=== PATIENT | male | born 1965 | race Caucasian/White ===

== ENCOUNTER 2016-10-10 09:50 | Emergency (ER) | payer BC ==
[~2016-10-10] VITALS: Ht 167.6 cm; Wt 83.0 kg
[~2016-10-10 09:50] MED LIST: ADV25050 IH; ALPR0.5T PO; ASPI-664 PO; ATOR20TA38 PO; CLOP75TA27 PO; HYDR-3011 PO; LISI-523 PO; METO-448 PO
[2016-10-10 09:53] VITALS: Ht 167.6 cm; Wt 83.0 kg
[2016-10-10] MEDS ORDERED: SOD CHLORIDE 0.9% 1,000 ML IV STA (10:18)
[2016-10-10] MEDS ORDERED: ONDANSETRON 4 MG INJ IV STA (10:18)
[2016-10-10] MEDS ORDERED: ACETAMINOPHEN 500 MG TAB PO STA (10:18)
--- NOTE | 2016-10-10 10:26 | ERD ---
ER Documentation Chief Complaint Date/Time DATE: 10/10/16 TIME: 10:24 Chief Complaint vomiting x today "drank too much last night" HPI This is a 50-year-old male history of coronary disease status post stent who presents with multiple complaints. The patient verbalizes that he drinks significant amount yesterday evening at a alliance party. The patient now today has multiple episodes of nonbloody nonbilious emesis with mild headache that is dull , gradual, frontal. He denies any chest pain or shortness of breath, no pleuritic pain. The patient's blood pressure is also noted be slightly elevated but he denies any chest pain or shortness of breath and states noncompliance with medication regimen. ROS All systems reviewed and are negative except as per history of present illness. Medications Home Meds Active Scripts Ondansetron (Ondansetron Odt) 4 Mg Tab.rapdis, 4 MG PO Q6H Y for NAUSEA AND/OR VOMITING, #30 TAB Prov:JAIME COLLINS MD 10/10/16 Alprazolam* (Xanax*) 0.5 Mg Tab, 0.5 MG PO TID, #20 TAB Prov:EVAN ARELLANO MD 02/14/15 Aspirin* (Aspirin* EC) 81 Mg Tablet.dr, 81 MG PO DAILY for 30 Days, TAB Prov:EVAN ARELLANO MD 02/14/15 Metoprolol Tartrate* (Lopressor*) 25 Mg Tab, 12.5 MG PO BID for 30 Days, TAB Prov:EVAN ARELLANO MD 02/14/15 Lisinopril* (Zestril*) 5 Mg Tab, 5 MG PO DAILY for 30 Days Prov:EVAN ARELLANO MD 02/14/15 Clopidogrel Bisulfate (Clopidogrel) 75 Mg Tab, 75 MG PO DAILY, #30 Prov:EVAN ARELLANO MD 02/14/15 Atorvastatin Calcium* (Atorvastatin Calcium*) 20 Mg Tab, 40 MG PO HS, #30 Prov:EVAN ARELLANO MD 02/14/15 Reported Medications Hydroxyzine Hcl* (Hydroxyzine Hcl*) 25 Mg Tablet, 25 MG PO DAILY 02/04/13 Discontinued Reported Medications Salmeterol Xinaf/Fluticasone* (Advair 250/50 Diskus*) 1 Inh Inha, 1 INH IH Y 02/04/13 Allergies Allergies: Coded Allergies: No Known Drug Allergies (Verified Allergy, Mild, 10/10/16) PMhx/Soc History of Surgery: Yes (hernia repair 1989) Anesthesia Reaction: No Hx Neurological Disorder: No Hx Respiratory Disorders: Yes (asthma) Hx Cardiac Disorders: Yes (MA, hypertension) Hx Psychiatric Problems: No Hx Miscellaneous Medical Probl: No Hx Alcohol Use: Yes Hx Substance Use: No Hx Tobacco Use: Yes Smoking Status: Current every day smoker FmHx Family History: coronary disease, No diabetes Physical Exam Vitals Vital Signs Date Time Temp Pulse Resp B/P Pulse Ox O2 Delivery O2 Flow Rate FiO2 10/10/16 09:53 97.5 89 18 177/113 91 Physical Exam General: Well developed, well nourished, no acute distress Head: Normocephalic, atraumatic. Eyes: Pupils equally reactive, EOM intact ENT: Moist mucous membranes Neck: Supple, no lymphadenopathy Respiratory: Lungs clear bilaterally, no distress Cardiovascular: RRR, no murmurs, rubs, or gallops Abdominal: Soft, non-tender, non-distended, no peritoneal signs, no tenderness to McBurney's point, negative Erazo sign : Deferred MSK: No edema, no unilateral swelling, 5/5 strength Neurologic: Alert and oriented, moving all extremities, normal speech, no focal weakness, no cerebellar signs Skin: No rash Psych: Normal mood Results 24 hrs Current Medications Medications (Trade) Dose Ordered Sig/Sabrina Route PRN Reason Start Time Stop Time Status Last Admin Dose Admin Sodium Chloride (NS) 1,000 ml @ 1,000 mls/hr Q1H STAT IV 10/10/16 10:18 10/10/16 11:17 DC 10/10/16 10:34 Ondansetron HCl (Zofran Inj) 4 mg ONCE STAT IV 10/10/16 10:18 10/10/16 10:20 DC 10/10/16 10:34 Acetaminophen (Tylenol Tab) 1,000 mg ONCE STAT PO 10/10/16 10:18 10/10/16 10:20 DC 10/10/16 10:34 Ketorolac Tromethamine (Toradol) 15 mg ONCE STAT IV 10/10/16 11:16 10/10/16 11:17 DC Procedures/MDM EKG, MONITORS, & DIAGNOSTIC IMAGING: EKG: I reviewed and interpreted a 12-lead EKG. Rhythm: Normal sinus rhythm Ectopy: None Intervals: No abnormalities ST segments: No elevations or depressions T waves: No contiguous inversions CT brain: No acute process MEDICAL DECISION MAKING: Patient's blood pressure was elevated (>120/80) but appears stable without evidence of hypertensive emergency or urgency. The patient was counseled about the risks of hypertension and urged to pursue outpatient monitoring and therapy within a week with their primary care physician. The patient has noncompliance with his medication regimen therefore his blood pressure is likely secondary to this process. The patient does have a headache and nausea and vomiting. This is not consistent with meningitis. The patient' s headache is unlikely related to serious etiology. The patient does not exhibit any clinical signs or symptoms, and has no risk factors to suggest headache etiology such as subarachnoid hemorrhage, acute vertebral or carotid dissection, intracranial mass, epidural, subdural hematoma, dural venous sinus thrombosis, giant cell arteritis, or pseudotumor cerebri. However, given the patient is on Plavix and has a headache with vomiting and elevated blood pressure and believe a CT of the brain would be appropriate to rule out hemorrhage. However, very low clinical concern for this process. Low concern for cardiac etiology. No chest pain, no anginal equivalent. Screening EKG appropriate. This is all very consistent with likely hangover, veisalgia. I believe he would benefit from hydration, nausea control. ER COURSE: The patient had improved symptoms with IV fluids, Toradol, Tylenol. The patient CT is negative, EKG is nonischemic. The patient is improving and is safe for discharge. I kept the patient and/or family informed of laboratory and diagnostic imaging results throughout the emergency room course. DISPOSITION PLAN: We discussed follow up with the patient's primary care doctor within 24 to 48 hours as needed. We also discussed return to the emergency room for worsening symptoms or worsening condition. Outpatient referral: [None required] Discharge Medications: Zofran Departure Diagnosis: Primary Impression: Hangover Complication of substance-induced condition: uncomplicated Qualified Code: F10.120 - Hangover, uncomplicated Additional Impression: Nausea and vomiting Vomiting type: unspecified Vomiting Intractability: non-intractable Qualified Code: R11.2 - Non-intractable vomiting with nausea, unspecified vomiting type Condition: Stable JAIME COLLINS MD Oct 10, 2016 10:26
[2016-10-10] MEDS ORDERED: ONDA4TAB14 PO (10:55)
--- NOTE | 2016-10-10 11:02 | RADRPT ---
PROCEDURE: CT Brain without. CLINICAL INDICATION: Headaches for 1 day with vomiting TECHNIQUE: A CT of the brain was performed utilizing axial sections from the skull base through th e vertex without contrast. The scan was reviewed in soft tissue brain and high frequency resolution bone algorithm windows. Images were reviewed on a high-resolution PACS workstation. The exam DLP = 720 mGy-cm. One or more of the following dose reduction techniques were used: Automated exposure control Adjustment of the mA and/or kV according to patient size. Use of iterative reconstruction technique. COMPARISON: 08/08/2012 FINDINGS: The ventricles and sulci are symmetric and normal in size and morphology. There is no acute intracr anial hemorrhage, an acute large territorial infarct, an abnormal extra-axial fluid collection, or a space-occupying intracranial mass. There is no mass effect or midline shift. The ordonez-white matte r differentiation is intact. The posterior fossa, brainstem, and basal cisterns are unremarkable. The subcutaneous soft tissues and scalp are unremarkable. There are no acute fractures. The visual ized mastoid air cells and paranasal sinuses are clear. The visualized bilateral globes and orbits are unremarkable. RPTAT: QQ IMPRESSION: No acute intracranial abnormality. .Luly Katz MD, MD Date Time Electronically viewed and signed by .Luly Katz MD, on 10/10/2016 11:01 .T/
[2016-10-10] MEDS ORDERED: KETOROLAC 15 MG INJ IV STA (11:16)
[2016-10-10 11:49] VITALS: BP 171/81; PULSE 79; RESP 18
== END 2016-10-10 11:49 | disposition home or self-care (01) ==
LOC: E/R 09:50
DX: F10.120 Alcohol abuse with intoxication, uncomplicated (principal); R11.2 Nausea with vomiting, unspecified; J45.909 Unspecified asthma, uncomplicated; I10 Essential (primary) hypertension; F17.210 Nicotine dependence, cigarettes, uncomplicated; I25.10 Atherosclerotic heart disease of native coronary artery without angina pectoris; R51 Headache; Z79.82 Long term (current) use of aspirin; Z98.61 Coronary angioplasty status
CPT/HCPCS: 70450; 93005; 96374; 96375; J1885; J2405; J7030; Z7502; Z7610